=== PATIENT | male | born 1975 | race Caucasian/White ===

== ENCOUNTER 2017-05-04 01:04 | Emergency (ER) | payer OTHER ==
--- NOTE | 2017-05-04 01:12 | EDPHY ---
H & P Time Seen by Provider: 05/04/17 01:05 HPI/ROS: CHIEF COMPLAINT: [Dysuria and Frequency] HISTORY OF PRESENT ILLNESS: [ ] Fever [none] Chills [none] Rigors [none] flank pain [none] abdominal pain [none] Exposure: REVIEW OF SYSTEMS: Gastrointestinal: No vomiting, no abdominal pain. Director Of Payroll: No discharge or lesions. Physical Exam: Gen: Afebrile. WD. WN. Nontoxic. Abdomen: BS positive. Nondistended. Soft and nontender. No CVA tenderness [Genital/Pelvic: Normal external genitalia] [No discharge. No erythema or lesions noted.] [Nl mucoid appearance at cervix without friability or discharge.] [No CMT. ] [ No palpable adenxal masses.] Constitutional: Initial Vital Signs Temperature (C) 37.3 C 05/04/17 01:05 Heart Rate 89 05/04/17 01:05 Respiratory Rate 16 05/04/17 01:05 Blood Pressure 144/99 H 05/04/17 01:05 O2 Sat (%) 97 05/04/17 01:05 O2 Delivery Mode Room Air Allergies/Adverse Reactions: droperidol [From Inapsine] Allergy (Intermediate, Verified 05/04/17 01:16) Anxiety Home Medications: Medication Instructions Recorded [place] 05/04/17 [place] 05/04/17 Medical Decision Making - Data Points Laboratory Results: 05/04/17 05/04/17 05/04/17 01:44 01:10 01:10 Urine Color YELLOW Urine Appearance CLEAR Urine pH 5.5 (5.0-7.5) Ur Specific [place] 1.025 (1.002-1.030) Urine Protein 1+ H (NEGATIVE) Urine Ketones TRACE H (NEGATIVE) Urine Blood 1+ H (NEGATIVE) Urine Nitrate NEGATIVE (NEGATIVE) Urine Bilirubin NEGATIVE (NEGATIVE) Urine Urobilinogen 1.0 EU EU (0.2-1.0) Ur Leukocyte Esterase NEGATIVE (NEGATIVE) Urine RBC 0-1 /hpf /hpf (0-3) Urine WBC 0-1 /hpf /hpf (0-3) Ur Epithelial Cells NONE SEEN /lpf /lpf (NONE-1+) Urine Mucus 2+ /lpf H /lpf (NONE-1+) Urine Sperm 1+ /hpf H /hpf (NONE SEEN) Urine Glucose NEGATIVE (NEGATIVE) RPR Pending N.gonorrhoeae RNA (TMA) Pending Departure - Departure Disposition: Home, Routine, Self-Care Clinical Impression: Concern about STD in male without diagnosis Condition: Good Instructions: Condom Use (ED), Safe Sex (ED), Sexually Transmitted Diseases (ED ) Additional Instructions: Use the Zofran in case you have some nausea from the medications tonight. He will need to follow up RPR test for syphilis in approximately 4 months, this could be done through your regular infectious disease specialist visits. Condom use is highly recommended Stand Alone Forms: Work Excuse
[2017-05-04 01:16] VITALS: PULSE 89; RESP 16; TEMP 99.1; O2SAT 97
[2017-05-04 01:22] LABS: COLOR YELLOW; LEUKOCYTE ESTERASE,URINE NEGATIVE (NEGATIVE); NITRITE,URINE NEGATIVE (NEGATIVE); PH,URINE 5.5 (5.0-7.5)
[2017-05-04 01:31] LABS: RBC,URINE 0-1 /hpf (0-3); WBC,URINE 0-1 /hpf (0-3)
[2017-05-04 01:32] LABS: MUCUS 2+ /lpf (NONE-1+)
[2017-05-04] MEDS ORDERED: AZITHROMYCIN 250 MG TAB PO ONE (01:58)
[2017-05-04] MEDS ORDERED: cefTRIAXone 250 MG VIAL IM ONE (01:58)
[2017-05-04] MEDS ORDERED: metroNIDAZOLE 500 MG TAB PO ONE (01:59)
[2017-05-04] MEDS ORDERED: ONDANSETRON 4MG PREPACK#2 BTL TAKEHOME ONE (02:01)
[2017-05-04] MEDS ORDERED: WATER FOR INJ.,BACTERIOSTATIC 30 ML MDV ONE (02:06)
[2017-05-04 02:26] VITALS: BP 140/91
== END 2017-05-04 02:26 | disposition home or self-care (01) ==
LOC: CED 01:04
DX: Z20.2 Contact with and (suspected) exposure to infections with a predominantly sexual mode of transmission (principal); B20 Human immunodeficiency virus [HIV] disease
CPT/HCPCS: 81003-PO; 81015-PO; J0696